=== PATIENT | male | born 1945 | race Caucasian/White ===

== ENCOUNTER → 2017-11-23 | Outpatient (CLI) | payer MEDICARE ==
[~2017-11-23] MED LIST: Bentyl10 MG/ML IM; Bentyl10 MG/ML PO; Diclofenac Pota50 MG PO; Norco 5-325 Ta1 EACH PO; Zofran4 MG PO
== END | disposition home or self-care (01) ==
LOC: LAB 11:52
DX: J32.9 Chronic sinusitis, unspecified (principal); J34.89 Other specified disorders of nose and nasal sinuses
CPT/HCPCS: 87070; 87205

== ENCOUNTER 2024-09-09 12:12 | Emergency (ER) | payer MEDICARE ==
[~2024-09-09] VITALS: Ht 182.9 cm; Wt 86.2 kg
[2024-09-09] MEDS ORDERED: Diphth,Pertuss(Acell),Tet Vac 0.5 ML VIAL IM ONE (12:25)
[2024-09-09 12:28] VITALS: BP 218/98
[2024-09-09] MEDS ORDERED: AMOCLA875 PO (14:32)
[2024-09-09] MEDS ORDERED: HYDR1TAB94 PO (14:32)
== END 2024-09-09 14:53 | disposition home or self-care (01) ==
LOC: ER 12:12
DX: S62.631B Displaced fracture of distal phalanx of left index finger, initial encounter for open fracture (principal); S62.522B Displaced fracture of distal phalanx of left thumb, initial encounter for open fracture; W27.0XXA Contact with workbench tool, initial encounter; Z87.891 Personal history of nicotine dependence
CPT/HCPCS: 12002; 73120; 90471; 90715; 99283-25

== ENCOUNTER → 2025-02-24 | Outpatient (CLI) | payer MEDICARE ==
[~2025-02-24] MED LIST changes: +AMOCLA875 PO; +HYDR1TAB94 PO
== END ==
LOC: LAB 18:36 → LAB SHORT 18:36
DX: R35.0 Frequency of micturition (principal)
CPT/HCPCS: 87086